=== PATIENT | male | born 1970 | race Two or more races ===

== ENCOUNTER 2025-01-22 09:00 | Outpatient (REF) | payer BC, SELFPAY ==
--- NOTE | 2025-01-22 | EMG_ITS ---
Please see the attached note MTDD
--- OUTSIDE RECORDS SUMMARY | 2025-01-22 09:14 | XMS_ITS | Clinical Summary ---
Author Organization [facility] Address [address] [place] [address] Phone Care Team Providers Care Watchmaker Apprentice Name Role Phone Katelynn Grier Primary Care Pr ovider Allergies No known active allergies Medications ibuprofen (ADVIL,MOTRIN) 200 mg tablet Take by mouth every 6 (six) hours if needed. Active lidocaine (LIDODERM) 5 % patch Apply 1 patch topically 1 (one) time each day. Remove & discard patch within 12 hours or as directed by MD. Active BROMELAINS, BULK, MISC 2 mg. Active MAGNESIUM GLYCINATE ORAL Take 600 mg by mouth. Active gabapentin (NEURONTIN) 300 mg capsule Take 1 capsule (300 mg total) by mouth 3 (three) times a day. Take first dose at bedtime, then if tolerating (not causing drowsiness) you can take a dose in the morning. If you are tolerating it twice daily you can increase to three times daily. 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 Lisa describes years of progressive midline low back pain with radiation down the right greater than left leg. On the right side he has pain in the posterior and lateral thigh. On the left side it is more hip and groin. Says he is very physically active and does not want to go to physical therapy until he has an MRI and knows what is wrong with him. He is neurologically intact. X-rays of the lumbar spine show mild degenerative changes most significant at L3-4. NSAIDs do not seem to help. At his request I will order an MRI of the lumbar spine I am better understand his situation. Splane that if it was not approved, he might need to go to physical therapy in order to get the MRI. He expressed understanding. Encounters Date Type Department Care Team Description 01/09/2025 Telephone Neurosurgery [address] [phone] Annmarie Ramsay MA Follow up (Pt LM on VM today ( 3:10pm ) Patient stated that he was following up on Paperwork sent to Provider. Said he missed Providers last call. Best number for call back [phone]./Thank you ) 01/02/[address] [phone] Annmarie Ramsay MA Call to Provider (Pt called asking to pls speak with Provider [place]. Provided number [phone] when convenient to call back. Thank you) 12/24/[address] [phone] Haresh Acevedo PA Appointment (Pt called asking if Provider had received email Pt sent ( not via [employer] ). Stated that we do not have access to Provider Email but will follow up with Provider later today. ( Provider in [place] ) Email is regarding his Return to Work status. Provided Pt Appointment information for EMG/NCS scheduled 01/07/25. Stressed importance to keep appt. ) 11/29/[address] [phone] Annmarie Ramsay MA Appointment (Called Pt 11/27/24 regarding Order for Pain Management. Asked Pt if he had preference of location, discussed [facility] or [facility]. Pt wanted 1st available. Faxed Order to [facility] ( see scan ) noting 1st avaialble for Pt. Will call Pt and provide number to [facility] today. /Called Pt 11/29/24 and provided telephone number to Dr Cantu's at [facility]. Told him fax was sent 11/27/24. ) 11/20/2024 Telephone Neurosurgery [facility] [address] [facility] [address] [place] [address] Estephania España MA Advice Only 11/14/[address] [facility] [address] [facility] [place] [address] Joshua Jang MD Other hydronephrosis 10/25/2024 Telephone [facility] [address] [facility] [address] [place] [address] Haresh Acevedo PA Advice Only (Back pain) 10/23/2024 6:20 PM EDT - 10/23/2024 11:59 PM EDT Hospital Encounter [facility] MRI [address] [place] [address] Chronic midline low back pain with bilateral sciatica Discharge Disposition: Home or Self Care from Last 3 Months Surgical History Surgery Date Site/Laterality Comments APPENDECTOMY PROCEDURE: HISTORICAL APPENDECTOMY KNEE SURGERY 07/10/2011 - 07/09/2012 Right Maniscus Family History Medical History Relation Name Comments Diabetes Maternal Grandfather Heart attack Maternal Grandfather Hypertension Maternal Grandfather Diabetes Maternal Grandmother Heart attack Maternal Grandmother Hypertension Maternal Grandmother Relation Name Status Comments Maternal Grandfather Maternal Grandmother Social History Tobacco Use Types Packs/Day Years Used Date Smoking Tobacco: Every Day Cigarettes 1 35.5 Started: 1989 Tobacco Cessation:Ready to Q uit: Not Asked; Counseling Given: Not Answered Alcohol Use Standard Drinks/Week Comments Yes 0 (1 standard drink = 0.6 oz pur e alcohol) Sex and Gender Information Value Date Recorded Sex Assigned at Male 10/14/2024 5:14 PM EDT Legal Sex Male 4:55 AM EST Gender Identity Male 10/14/2024 5:14 PM EDT Sexual Orientation Straight 10/14/2024 5: 14 PM EDT Obstetrics History Last Filed Vital Signs Vital Sign Reading Time Taken Comments Blood Pressure 133/100 10/14/2024 2:25 PM EDT Pulse 81 10/14/2024 2:25 PM EDT Temperature 36.7 C (98.1 F) 10/14/2024 2:25 PM EDT Respiratory Rate 18 10/14/2024 2:25 PM EDT Oxygen Saturation 99% 10/14/2024 2:25 PM EDT Inhaled Oxygen Concentration - - Weight 104 kg (230 lb) 10/14/2024 2:25 PM EDT Height 188 cm (6' 2 ) 10/14/2024 2:25 PM EDT Body Mass Index 29.53 10/14/2024 2:25 PM EDT Plan of Treatment Health Maintenance Due Date Last Done Comments Pneumococcal Vaccine: 50+ Years (1 of 2 - PCV) 1989 IPV Vaccines (2 of 3 - Adult catch-up series) 01/17/2015 12/20/2014 Hepatitis B Vaccines (3 of 3 - 19+ 3-dose series) 02/14/2015 12/20/2014, 02/13/2010 Zoster Vaccines (1 of 2) 2020 Cholesterol Screening (Lipid Panel) 06/12/2022 Colorectal Cancer Screening: Colonoscopy 06/12/2022 Depression Screening 06/12/2022 HIV Screening 06/12/2022 Hepatitis C Screening 06/12/2022 Lung Cancer Screening (Low Dose CT) 06/12/2022 Social Influencers of Health Screening 06/12/2022 COVID-19 Vaccine ( - season) 2024 12/28/2021, 11/30/2021 Influenza Vaccine (#1) 2025 2, 06/11/2022, 07/18/2021, Additional history exists DTaP,Tdap,and Td Vaccines (3 - Td or Tdap) 07/17/2030 07/17/2020, 02/13/2010 Hepatitis A Vaccines Aged Out 12/08/2012, 02/14/20 10 No longer eligible based on patient's age to complete this topic MMR Vaccines Aged Out 04/11/2015 No longer eligi ble based on patient's age to complete this topic HIB Vaccines Aged Out No longer eligi ble based on patient's age to complete this topic HPV Vaccines Aged Out No longer eligi ble based on patient's age to complete this topic Meningococcal ACWY Vaccine Aged Out N o longer eligible based on patient's age to complete this topic Meningococcal B Vaccine Aged Out No l onger eligible based on patient's age to complete this topic RSV Immunization Patients Under 20 months Aged Out No longer eligible based on patient's age to complete this topic Varicella Vaccines Aged Out No longer eligible based on patient's age to complete this topic Procedures Procedure Name Priority Date/Time Associated Diagnosis Comments BUN Routine 11/14/2024 9:55 AM EDT Other hydronephrosis CREATININE, SERUM Routine 11/14/2024 9:5 5 AM EDT Other hydronephrosis MR LUMBAR SPINE WO CONTRAST Routine 10/23/2024 7:55 PM EDT Chronic midline low back pain with bilateral sciatica from Last 3 Months Results * Creatinine (11/14/2024 9:55 AM EDT) Creatinine 1.00 0.70 - 1.30 mg/dL LAB CHEMISTRY METHOD 11/14/2024 2:08 PM EDT [facility] eGFR 89 >=60 mL/min/1. 73m2 LAB CHEMISTRY METHOD 11/14/2024 2:08 PM EDT [facility] Comment:Calculation based on the Chronic Kidney Disease Epidemiology Collaboration (CKD-EPI) equation refit without adjustment for race. Blood Venous blood specimen / Unknown 11/14/2024 9:55 AM EDT 11/14/2024 12:46 PM EDT us Joshua Jang MD LAB BLOOD ORDERABLES Final Resul t [facility] [address] [place] [address], * BUN (11/14/2024 9:55 AM EDT) BUN 8 5 - 25 mg/dL LAB CHEMISTRY METHOD 11/14/2024 2:08 PM EDT [facility] Blood Venous blood specimen / Unknown 11/14/2024 9:55 AM EDT 11/14/2024 12:46 PM EDT us Joshua Jang MD LAB BLOOD ORDERABLES Final Resul t [facility] [address] [place] [address], * MR Lumbar Spine wo Contrast (10/23/2024 7:55 PM EDT) Anatomical Region Laterality Modality L-spine, Spine Magnetic Resonan ce 10/24/2024 9:34 AM EDT Impressions 10/24/2024 9:38 AM EDT 1. Mild degenerative changes of the lumbar spine. 2. Partially visible mild left hydronephrosis. Etiology not established on this study. Consider further evaluation with ultrasound or CT. A [employer] message has been communicated to the office of HARESH ACEVEDO via the [employer] System on 10/24/2024 9:38 AM, Message ID [id number]. -------- FINAL REPORT -------- Dictated By: Leonel Mcclure Dictated Date: 10/24/2024 09:34 ET Assigned Physician: Leonel Mcclure Reviewed and Electronically Signed By: Leonel Mcclure Signed Date: 10/24/2024 09:38 ET Workstation ID: [id number] Transcribed By: Self Edit Transcribed Date: 10/24/2024 09:34 ET Narrative 10/24/2024 9:38 AM EDT PROCEDURE: MRI of the lumbar spine without contrast. TECHNIQUE: Multiplanar multisequence MRI of the lumbar spine without intravenous contrast administration. HISTORY: Low back pain, > 6 wks COMPARISON: No prior study available for comparison. FINDINGS: Mild left hydronephrosis. Etiology not established on this exam. Small T2 hyperintense lesion exophytic from the lateral lower pole of the left kidney, probably a cyst. No other paraspinous soft tissue findings. Alignment is normal. No compression deformity or concerning marrow infiltrative lesion. Small superior endplate Schmorl's node at L4. Small hemangioma in the posterior T12 vertebral body. Normal position of the conus at T12-L1. Lumbar disc levels: L1-2: Only imaged in the sagittal plane. No significant disc or facet abnormality. No spinal or foraminal stenosis. L2-3: Only imaged in the sagittal plane. Mild irregularity of the superior L3 endplate. No spinal or foraminal stenosis. L3-4: Small anterior endplate osteophytes. Small Schmorl's node along the superior L4 endplate. No significant spinal or foraminal stenosis. L4-5: Mild irregularity of the superior L5 endplate. Small disc osteophyte complex eccentric to the left. Minimal bilateral facet arthropathy. No spinal stenosis. Mild left foraminal stenosis. L5-S1: Small left foraminal focal protrusion. This contacts the exiting L5 nerve root without significant impingement or displacement. No significant spinal or foraminal stenosis. Procedure Note Leonel Mcclure MD - 10/24/2024 PROCEDURE: MRI of the lumbar spine without contrast. TECHNIQUE: Multiplanar multisequence MRI of the lumbar spine withoutintravenous contrast administration. HISTORY: Low back pain, > 6 wks COMPARISON: No prior study available for comparison. FINDINGS: Mild left hydronephrosis. Etiology not established on this exam. SmallT2 hyperintense lesion exophytic from the lateral lower pole of the leftkidney, probably a cyst. No other paraspinous soft tissue findings. Alignment is normal. No compression deformity or concerning marrowinfiltrative lesion. Small superior endplate Schmorl's node at L4. Smallhemangioma in the posterior T12 vertebral body. Normal position of the conus at T12-L1. Lumbar disc levels: L1-2: Only imaged in the sagittal plane. No significant disc or facetabnormality. No spinal or foraminal stenosis. L2-3: Only imaged in the sagittal plane. Mild irregularity of thesuperior L3 endplate. No spinal or foraminal stenosis. L3-4: Small anterior endplate osteophytes. Small Schmorl's node along thesuperior L4 endplate. No significant spinal or foraminal stenosis. L4-5: Mild irregularity of the superior L5 endplate. Small discosteophyte complex eccentric to the left. Minimal bilateral facetarthropathy. No spinal stenosis. Mild left foraminal stenosis. L5-S1: Small left foraminal focal protrusion. This contacts the exitingL5 nerve root without significant impingement or displacement. Nosignificant spinal or foraminal stenosis. IMPRESSION: 1. Mild degenerative changes of the lumbar spine. 2. Partially visible mild left hydronephrosis. Etiology not establishedon this study. Consider further evaluation with ultrasound or CT. A [employer] message has been communicated to the office of HARESH ACEVEDO [email or web address] System on 10/24/2024 9:38 AM, MessageID [id number]. -------- FINAL REPORT -------- Dictated By: Leonel Mcclure Dictated Date: 10/24/2024 09:34 ET Assigned Physician: Leonel Mcclure Reviewed and Electronically Signed By: Leonel Mcclure Signed Date: 10/24/2024 09:38 ET Workstation ID: [id number] Transcribed By: Self Edit Transcribed Date: 10/24/2024 09:34 ET Haresh TODD IMG MRI PROCEDURES Final Resu lt from Last 3 Months Insurance [facility] Care Teams Watchmaker Apprentice Relationship Specialty Start Date End Date Katelynn Grier PA [address] [place] [phone] (work) [facility] - General 09/24/24
== END 2025-01-22 09:01 | disposition home or self-care (01) ==
LOC: HO.NEURO 09:00
PROVIDERS: Visit Provider Psychiatry & Neurology Neurology
DX: M54.42 Lumbago with sciatica, left side (principal); M54.41 Lumbago with sciatica, right side; G89.29 Other chronic pain; G57.82 Other specified mononeuropathies of left lower limb
CPT/HCPCS: 95886; 95911

== ENCOUNTER → 2025-01-22 09:45 | Outpatient (BNV) | payer BC, SELFPAY | PROVIDERS: Visit Provider Psychiatry & Neurology Neurology | DX: M54.41 Lumbago with sciatica, right side (principal); M54.42 Lumbago with sciatica, left side | CPT/HCPCS: 95886; 95911 ==